=== PATIENT | male | born 2000 | race American Indian/Alaskan Native ===

== ENCOUNTER 2019-03-03 11:15 | Emergency (ER) | payer OTHER ==
[2019-03-03 11:23] VITALS: BP 144/76
[2019-03-03] MEDS ORDERED: TYLENOL PO ONE (11:24)
[2019-03-03] MEDS ORDERED: TYLENOL ONE (11:27)
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
--- NOTE | 2019-03-03 12:52 | XRay Report ---
LEFT KNEE, 3 views: History: Pain. The bony architecture is intact without evidence of fracture or dislocation. No significant soft tissue abnormality is seen. IMPRESSION: Normal left knee.
== END 2019-03-03 13:19 | disposition home or self-care (01) ==
LOC: ED 11:15
DX: S09.90XA Unspecified injury of head, initial encounter (principal); M25.562 Pain in left knee; F12.10 Cannabis abuse, uncomplicated; Z98.890 Other specified postprocedural states; V47.6XXA Car passenger injured in collision with fixed or stationary object in traffic accident, initial encounter; Y93.89 Activity, other specified; Y92.410 Unspecified street and highway as the place of occurrence of the external cause; Y99.8 Other external cause status
CPT/HCPCS: 70450